=== PATIENT | male | born 1985 | race Caucasian/White ===

== ENCOUNTER 2019-11-21 16:41 | Emergency (ER) | payer SELFPAY ==
[~2019-11-21] VITALS: Ht 182.9 cm; Wt 86.1 kg
[~2019-11-21 16:41] MED LIST: FLAGYL500 MG PO; HYDROCODON-ACE1 EAC7 PO; LEVAQUIN500 MG PO
[2019-11-21 16:44] VITALS: Ht 182.9 cm; Wt 86.1 kg
[2019-11-21 17:01] LABS: BILIRUBIN NEGATIVE (NEGATIVE); GLUCOSE NEGATIVE (NEGATIVE); KETONE NEGATIVE (NEGATIVE); NITRITE NEGATIVE (NEGATIVE); UROBILINOGEN NORMAL (NORMAL)
[2019-11-21 17:03] LABS: BACTERIA MODERATE /hpf (NEGATIVE); EPITHELIAL CELLS 0-5 /hpf (0-5); RED CELLS - URINE 0-5 /hpf (0-5); WHITE CELLS - URINE >50 /hpf (NEGATIVE)
[2019-11-21] MEDS ORDERED: LEVAQUIN750 MG PO (17:23)
[2019-11-21 17:58] VITALS: BP 123/75
[2019-11-24 07:10] LABS: CHLAMYDIA TRACHOMATIS, NAA Positive (Negative)
== END 2019-11-21 17:59 | disposition home or self-care (01) ==
LOC: D.ER 16:41
PROVIDERS: Family Medicine
DX: A64 Unspecified sexually transmitted disease (principal); N39.0 Urinary tract infection, site not specified; R36.9 Urethral discharge, unspecified